=== PATIENT | female | born 1980 | race Two or more races ===

== ENCOUNTER 2018-09-19 15:40 | Outpatient (CLI) | payer OTHER | END 2018-09-19 17:28 | disposition home or self-care (01) | LOC: NST 15:40 | DX: Z34.83 Encounter for supervision of other normal pregnancy, third trimester (principal) ==

== ENCOUNTER 2018-09-19 16:04 | Inpatient (IN) | payer OTHER ==
[~2018-09-19] VITALS: Ht 160 cm; Wt 187.0 kg
[2018-10-06] MEDS ORDERED: PRENATABS RX T1 EACH PO (04:21)
== END 2018-10-08 11:25 | disposition home or self-care (01) | DRG 807 ==
LOC: OB/GYN 10-06 04:08 → LDR 10-06 04:08 → OB/GYN 10-06 15:42 → LDR 10-22 15:15
PROVIDERS: ADMIT Obstetrics & Gynecology Maternal & Fetal Medicine
PROC: 10E0XZZ Delivery of Products of Conception, External Approach (ICD-10-PCS; principal; 2018-10-06)
PROC: 0HQ9XZZ Repair Perineum Skin, External Approach (ICD-10-PCS; 2018-10-06)
PROC: 4A0HXFZ Measurement of Products of Conception, Cardiac Rhythm, External Approach (ICD-10-PCS; 2018-10-06)
DX: O70.0 First degree perineal laceration during delivery (principal); Z37.0 Single live birth; O69.81X0 Labor and delivery complicated by cord around neck, without compression, not applicable or unspecified; Z3A.37 37 weeks gestation of pregnancy

== ENCOUNTER 2018-10-01 11:58 | Outpatient (CLI) | payer OTHER | END 2018-10-01 12:46 | disposition home or self-care (01) | LOC: NST 11:58 | DX: Z34.83 Encounter for supervision of other normal pregnancy, third trimester (principal) ==